=== PATIENT | male | born 1960 | race Caucasian/White ===

== ENCOUNTER 2017-06-20 10:55 | Emergency (ER) | payer SELFPAY ==
[~2017-06-20] VITALS: Ht 175.3 cm; Wt 60.0 kg
[~2017-06-20 10:55] MED LIST: METF500 PO; Z.0.NO CURRENT MEDS
[2017-06-20 11:02] VITALS: BP 152/87; PULSE 64; RESP 18; TEMP 98.5; O2SAT 97
--- NOTE | 2017-06-20 11:08 | PD ---
HPI Chief Complaint: Respiratory Distress Time Seen by Provider: 11:06 Travel History International Travel<30 days: No Contact w/Intl Traveler<30days: No Traveled to known affect area: No History of Present Illness HPI 56-year-old male presents to emergency department for evaluation of his trach. Patient states that he was hospitalized at [facility] for many days on a ventilator. He went for procedure one week ago at [facility] for evaluation of a abscess versus mass in his throat. As result, patient was emergently trached. He reports being discharged. He tells me he is out of cannulas and has been unable to order a new one, "that it is in the mail." He has not followed up with anybody but states he is supposed to get the trach reversed in 2 days. He shows us a card with an appointment with Dr. De La Garza tomorrow. He denies any fever or chills. Does report a sensation of difficulty getting a deep breath. Denies any chest or tightness. No other symptoms to report. PFSH Past Medical History Diabetes: Yes Diminished Hearing: No Respiratory: Yes Immunizations Current: No Past Surgical History Appendectomy: Yes Social History Alcohol Use: Yes (12 PK BEER DAILY) Tobacco Use: Yes (1/2 PPD) Substance Use: No Allergies-Medications (Allergen,Severity, Reaction): Coded Allergies: penicillin G (Verified Allergy, Severe, Anaphylaxis, 06/20/17) trazodone (Verified Allergy, Severe, Insomnia, 06/20/17) No Known Allergies (Verified Allergy, Unknown, 06/20/17) Reported Meds & Prescriptions Reported Meds & Active Scripts Active Reported [place] Carbonate 300 Mg Cap 300 Mg PO BID Hydroxyzine Pamoate 25 Mg Cap 25 Mg PO Q6H PRN Fluconazole 200 Mg Tab 200 Mg PO DAILY Pantoprazole (Pantoprazole Sodium) 40 Mg Tab 40 Mg PO DAILY Saw [place] Extract (Saw [place]-Zinc) 160-15 mg Cap 1 Cap PO DAILY Cefdinir 300 Mg Cap 300 Mg PO BID Latuda (Lurasidone) 40 Mg Tab 40 Mg PO DAILY Hydrocodone-Acetamin 5-325 mg (Hydrocodone/Acetaminophen) 5 Mg-325 Mg Tablet PO Q6HR PRN Review of Systems Except as stated in HPI: all other systems reviewed are Neg Physical Exam Narrative GENERAL: Well-nourished male patient, ambulatory no acute distress SKIN: Focused skin assessment warm/dry. HEAD: Atraumatic. Normocephalic. EYES: Pupils equal and round. No scleral icterus. No injection or drainage. ENT: No nasal bleeding or discharge. Mucous membranes pink and moist. NECK: Trachea midline. No JVD. #[address] The inner cannula is hanging out. Skin is without erythema or edema. Hard mucus dried around the trach site. CARDIOVASCULAR: Regular rate and rhythm. No murmur appreciated. RESPIRATORY: No accessory muscle use. Coarse to auscultation. Breath sounds equal bilaterally. GASTROINTESTINAL: Abdomen soft, non-tender, nondistended. Hepatic and splenic margins not palpable. MUSCULOSKELETAL: No obvious deformities. No clubbing. No cyanosis. No edema. NEUROLOGICAL: Awake and alert. No obvious cranial nerve deficits. Motor grossly within normal limits. Normal speech. Data Data Last Documented VS Vital Signs Date Time Temp Pulse Resp B/P (MAP) Pulse Ox O2 Delivery O2 Flow Rate FiO2 06/20/17 11:06 67 16 98 Room Air 06/20/17 11:02 98.5 152/87 (108) Orders Orders Chest, Single Ap (06/20/17 ) Cannula, Disp Inner 8fr Ea (06/20/17 11:22) ^ Suction (06/20/17 12:05) Radiology Film Requests (06/20/17 ) [facility] Medical Decision Making Medical Screen Exam Complete: Yes Emergency Medical Condition: Yes Medical Record Reviewed: Yes Differential Diagnosis Complication with trach versus mucous plug versus pneumonia Narrative Course 56-year-old male presents to emergency department for evaluation. Patient appears without distress. He does have a #[address] however the inner cannula is hanging out. Patient has a moderate amount of hard crusted mucus surrounding the trach. I am unable to advance a new inner cannula. I have contacted respiratory to assist in this. Sectioning is attempted and wrist trace unable to advance a 14 [place]ese catheter completely. I have contacted and spoke with Dr. De La Garza who states that he did care for the patient when he was in the intensive care unit while he was on a vent. He states he was transferred to [facility] where your nose and throat biopsy the mass and placed the trach. He is requesting observation admission and evaluation by ENT. I called and spoke with Dr. Rider, our research and development director communication clerk. He advises me that research and development director do not handle trachs and airways here at [place] that Gen. surgery does. 1330 I called and spoke with Gen. Leanna surgery on-call who came to the bedside and evaluated the patient. He advises deboraing a To see how the patient tolerates this however the patient does not tolerate this and states that he cannot breathe. He then advises contacting [facility] and discussing the patient with the surgeon who placed the trach. 1400 We then contacted the transfer center who reviewed the patient's record and paged their research and development director communication clerk. 1430 the patient has been requesting strawberry ice cream during his entire visit here and keeps complaining about how long this is taking. I have plain several times that it is necessary to keep him nothing by mouth in case he does need to go under procedure. I have kept him up-to-date up to this point and told him we are only waiting for the surgeon to call us back to place the trach. Patient states that if we are "not going to do anything else" he would like to leave. I did review with the patient leaving at this time would be AGAINST MEDICAL ADVICE. We did give him the name of the surgeon who placed the trach prior to him leaving. AMA: The risks of leaving against medical advice without further evaluation treatment were discussed with the patient. These risks include cardiac dysfunction, cardiac dysrhythmia, possible heart attack, possible stroke or . The patient indicated understanding of these risks and appeared to have the capacity to make this decision. [address] Finn, research and development director communication clerk at [facility] who states the patient was transferred back to [facility] following trach placement. I have informed him that the patient left AGAINST MEDICAL ADVICE. He recommends that if the patient returns placing a new inner cannula in, pushing past the hard mucus collection within the trachea and then placing a cap on it. Diagnosis Primary Impression: Tracheostomy complication, unspecified Disposition: 07 AGAINST MEDICAL ADVICE Condition: Stable Leti Dunlap JACKIE Jun 20, 2017 11:08
[2017-06-20] MEDS ORDERED: FLUC200T2 PO (11:23)
[2017-06-20] MEDS ORDERED: HYDR-3516 PO (11:23)
[2017-06-20] MEDS ORDERED: LITH300C2 PO (11:23)
[2017-06-20] MEDS ORDERED: CEFD300C PO (11:23)
[2017-06-20] MEDS ORDERED: SAWCAP2 PO (11:23)
[2017-06-20] MEDS ORDERED: LURA40 PO (11:23)
[2017-06-20] MEDS ORDERED: HYDR1CAP30 PO (11:23)
[2017-06-20] MEDS ORDERED: PANT40TA3 PO (11:23)
--- NOTE | 2017-06-20 12:38 | RADRPT ---
EXAM DATE/TIME: 06/20/2017 12:30 [facility] COMPARISON: No previous studies available for comparison. INDICATIONS : Trach came out. Coughing, wheezing since today. MEDICAL HISTORY : Unobtainable. SURGICAL HISTORY : Appendectomy. 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 ENCOUNTER: Initial ACUITY: 1 day PAIN SCORE: 3/10 LOCATION: Bilateral chest FINDINGS: A single view of the chest demonstrates the lungs to be symmetrically aerated without evidence of mas s, infiltrate or effusion. The cardiomediastinal contours are unremarkable. Osseous structures are intact. Tracheostomy tube present, grossly normally positioned. CONCLUSION: No evidence of acute cardiopulmonary disease. Saeid Ochoa MD on June 20, 2017 at 12:36 Board Certified Radiologist. This report was verified electronically.
--- NOTE | 2017-06-20 21:15 | MB ---
cc: SANDRA RPINGLE M.D. DATE OF CONSULTATION: 06/20/2017. REASON FOR CONSULTATION: Problems with his tracheostomy. HISTORY OF PRESENT ILLNESS: This is a 56-year-old gentleman who had emergency tracheostomy placed over in [place] somewhere. The events are somewhat sketchy. He is not a very good historian. The emergency room personnel called me to assist in trying to figure out what was going on and assist him in his tracheostomy care. Apparently he has had some type of growth in his larynx or mouth that required an urgent tracheostomy in [place]. There are no records here. He has never been to this hospital with his problem apparently. He is not a good historian but at any rate, they called me after the inner cannula came out of the tracheostomy tube. PAST MEDICAL HISTORY: He is somewhat a poor historian and does not really want to talk about what has been going on. REVIEW OF SYSTEMS: He will not give me any really good review of systems because he wants to eat some ice cream and tells me that his tracheostomy tube is going to be pulled out by his physician, Dr. Smith, tomorrow. MEDICATIONS: Listed in the chart and will not be repeated. ALLERGIES: Listed in the chart and will not be repeated. PHYSICAL EXAMINATION: GENERAL: On examination he is sitting in the emergency room. He gets up and walks around without difficulty. He does not look short of breath or in any distress with me. NECK: He has a tracheostomy tube that is about two weeks old. The inner cannula is out. When he is talking to me with his finger over the tracheostomy tube, it does not appear that he is in any respiratory distress at all. When I attempted to place the inner cannula back in, he had a coughing spell. It seems to get hung up on something, it maybe some tissue because apparently he has not been taking good care of his tracheostomy site. I did not try to replace the inner cannula because he did not appear to be in any respiratory distress. When I told him we would just put the registered representative on it to cap him, he said he could not do that because then he could not breath, although when I put my finger over the hole of the tracheostomy tube, he seemed to breathe and talk fine. During part of our discussion when I was trying to figure out exactly what was going on with him, he kept repeating he wanted some ice cream. ASSESSMENT: A gentleman with a tracheostomy tube that is fresh, it is about two weeks out. I do not have any history or any records as to exactly why it was placed, if he has a mass or does not have a mass. He said the mass went away and he would like his tracheostomy tube pulled out. I told him that at this point I do not feel comfortable pulling the tracheostomy tube without any information. I suggested to the emergency room personnel that there are two options: He looks comfortable to me. He could be discharged to follow up with his physician who is aware of what is going on with him or #2, transfer him to the treating facility that placed the tracheostomy. I do not really think it is in his best interest to put a new one in at this time. The emergency room personnel are going to try to make some arrangements and calls with the other treating physician on his case. I do not have anything to add other than he does not appear to be in distress at this time. MD MARK Linda/AYESHA /8:53 PM /9:00 PM
== END 2017-06-20 14:38 | disposition left against medical advice (07) ==
LOC: NEPE 10:55
DX: Z93.0 Tracheostomy status (principal); E11.9 Type 2 diabetes mellitus without complications; F17.200 Nicotine dependence, unspecified, uncomplicated; Z79.899 Other long term (current) drug therapy; Z88.0 Allergy status to penicillin; Z88.8 Allergy status to other drugs, medicaments and biological substances
CPT/HCPCS: 71010; 99285

== ENCOUNTER 2017-07-05 23:27 | Emergency (ER) | payer OTHER ==
[~2017-07-05] VITALS: Ht 165.1 cm; Wt 68.0 kg
[~2017-07-05 23:27] MED LIST changes: +CEFD300C PO; +FLUC200T2 PO; +HYDR-3516 PO; +HYDR1CAP30 PO; +LITH300C2 PO; +LURA40 PO; -METF500 PO; +PANT40TA3 PO; +SAWCAP2 PO; -Z.0.NO CURRENT MEDS
[2017-07-05 23:47] VITALS: BP 137/76; PULSE 69; RESP 20; TEMP 98.4; O2SAT 98
--- NOTE | 2017-07-06 00:09 | PD ---
HPI Chief Complaint: Psychiatric Symptoms Time Seen by Provider: 00:00 Travel History International Travel<30 days: No Contact w/Intl Traveler<30days: No Traveled to known affect area: No History of Present Illness HPI 56-year-old male presents under [place] act initiated by the police department. According to his paperwork the patient "stated that he has anxiety and depression and bipolar schizophrenia and meds are not working. He stated that he is seeing people that are really there and that he would hurt those people if they acting up. Stated he was having suicidal thoughts due to recent misfortune's." The patient reports that he is currently homeless, recently "lost everything" and had nowhere to go and therefore he called the police. He endorses passive suicidal thoughts. He denies any drug or alcohol use. He has no medical complaints at this time. [facility] Past Medical History Diabetes: Yes Patient Takes Glucophage: Yes Diminished Hearing: No Respiratory: Yes Immunizations Current: No Tetanus Vaccination: < 5 Years Influenza Vaccination: No Past Surgical History Appendectomy: Yes Other Surgery: Yes (BENIGN TUMOR REMOVED FROM THROAT. ) Social History Alcohol Use: No (QUIT 2 MONTHS AGO. PAST DRINKER) Tobacco Use: Yes Substance Use: No Allergies-Medications (Allergen,Severity, Reaction): Coded Allergies: penicillin G (Verified Allergy, Severe, Anaphylaxis, 07/05/17) trazodone (Verified Allergy, Severe, Insomnia, 07/05/17) No Known Allergies (Verified Allergy, Unknown, 07/05/17) Reported Meds & Prescriptions Reported Meds & Active Scripts Active Reported [place] Carbonate 300 Mg Cap 300 Mg PO BID Hydroxyzine Pamoate 25 Mg Cap 25 Mg PO Q6H PRN Fluconazole 200 Mg Tab 200 Mg PO DAILY Pantoprazole (Pantoprazole Sodium) 40 Mg Tab 40 Mg PO DAILY Saw [place] Extract (Saw [place]-Zinc) 160-15 mg Cap 1 Cap PO DAILY Cefdinir 300 Mg Cap 300 Mg PO BID Latuda (Lurasidone) 40 Mg Tab 40 Mg PO DAILY Hydrocodone-Acetamin 5-325 mg (Hydrocodone/Acetaminophen) 5 Mg-325 Mg Tablet PO Q6HR PRN Review of Systems Except as stated in HPI: all other systems reviewed are Neg Physical Exam Narrative GENERAL: Well-nourished male in no acute distress SKIN: Warm and dry. HEAD: Atraumatic. Normocephalic. EYES: Pupils equal and round. No scleral icterus. No injection or drainage. ENT: No nasal bleeding or discharge. Mucous membranes pink and moist. NECK: Trachea midline. No JVD. Some in place. CARDIOVASCULAR: Regular rate and rhythm. No murmur appreciated. RESPIRATORY: No accessory muscle use. Clear to auscultation. Breath sounds equal bilaterally. GASTROINTESTINAL: Abdomen soft, non-tender, nondistended. Hepatic and splenic margins not palpable. MUSCULOSKELETAL: No obvious deformities. No clubbing. No cyanosis. No edema. NEUROLOGICAL: Awake and alert. No obvious cranial nerve deficits. Motor grossly within normal limits. Normal speech. PSYCHIATRIC: Anxious. Insight and judgment normal. Data Data Last Documented VS Vital Signs Date Time Temp Pulse Resp B/P (MAP) Pulse Ox O2 Delivery O2 Flow Rate FiO2 07/05/17 23:47 98.4 69 20 137/76 (96) 98 Orders Orders Complete Blood Count With Diff (07/05/17 23:50) Comprehensive Metabolic Panel (07/05/17 23:50) Psych Screen (07/05/17 23:50) Drug Screen, Random Urine (07/05/17 23:50) Alcohol (Ethanol) (07/05/17 23:50) Labs Laboratory Tests Test 07/06/17 00:15 White Blood Count 6.3 TH/MM3 Red Blood Count 4.11 MIL/MM3 Hemoglobin 13.5 GM/DL Hematocrit 38.7 % Mean Corpuscular Volume 94.1 FL Mean Corpuscular Hemoglobin 32.7 PG Mean Corpuscular Hemoglobin Concent 34.8 % Red Cell Distribution Width 12.6 % Platelet Count 234 TH/MM3 Mean Platelet Volume 8.7 FL Neutrophils (%) (Auto) 78.7 % Lymphocytes (%) (Auto) 15.4 % Monocytes (%) (Auto) 5.5 % Eosinophils (%) (Auto) 0.1 % Basophils (%) (Auto) 0.3 % Neutrophils # (Auto) 4.9 TH/MM3 Lymphocytes # (Auto) 1.0 TH/MM3 Monocytes # (Auto) 0.3 TH/MM3 Eosinophils # (Auto) 0.0 TH/MM3 Basophils # (Auto) 0.0 TH/MM3 CBC Comment DIFF FINAL Differential Comment Blood Urea Nitrogen 13 MG/DL Creatinine 0.84 MG/DL Random Glucose 180 MG/DL Total Protein 6.4 GM/DL Albumin 3.0 GM/DL Calcium Level 8.5 MG/DL Alkaline Phosphatase 103 U/L Aspartate Amino Transf (AST/SGOT) 47 U/L Alanine Aminotransferase (ALT/SGPT) 90 U/L Total Bilirubin 0.3 MG/DL Sodium Level 138 MEQ/L Potassium Level 4.6 MEQ/L Chloride Level 108 MEQ/L Carbon Dioxide Level 23.4 MEQ/L Anion Gap 7 MEQ/L Estimat Glomerular Filtration Rate 94 ML/MIN Urine Opiates Screen NEG Urine Barbiturates Screen NEG Urine Amphetamines Screen NEG Urine Benzodiazepines Screen NEG Urine Cocaine Screen NEG Urine Cannabinoids Screen NEG Ethyl Alcohol Level LESS THAN 3 MG/DL MDM Medical Decision Making Medical Screen Exam Complete: Yes Emergency Medical Condition: Yes Medical Record Reviewed: Yes Differential Diagnosis Homelessness, major depressive disorder, adjustment reaction, substance induced mood disorder Narrative Course 56-year-old male presents under [place] act for psychiatric evaluation. Mental health screening discussed with the patient. Psychiatric screen ordered. Lab work reviewed. Mildly elevated liver enzymes. Medically cleared. Diagnosis Primary Impression: Medical clearance for psychiatric admission Jonah Aguirre Jul 06, 2017 00:09
[2017-07-06 00:28] LABS: AUTOMATED NEUTROPHIL # 4.9 TH/MM3 (1.8-7.7); BASOPHIL % 0.3 % (0.0-2.0); EOSINOPHIL % 0.1 % (0.0-4.0); HEMATOCRIT 38.7 % (39.0-51.0); HEMOGLOBIN 13.5 GM/DL (13.0-17.0); LYMPH % 15.4 % (9.0-44.0); MEAN CELL VOLUME 94.1 FL (80.0-100.0); MEAN CORPUSCULAR HEMOGLOBIN 32.7 PG (27.0-34.0); MEAN CORPUSCULAR HGB CONC 34.8 % (32.0-36.0); MEAN PLATELET VOLUME 8.7 FL (7.0-11.0); MONO % 5.5 % (0.0-8.0); MONOCYTE # 0.3 TH/MM3 (0-0.9); NEUT % 78.7 % (16.0-70.0); PLATELET COUNT 234 TH/MM3 (150-450); RED BLOOD COUNT 4.11 MIL/MM3 (4.50-5.90); RED CELL DISTRIBUTION WIDTH 12.6 % (11.6-17.2); WHITE BLOOD COUNT 6.3 TH/MM3 (4.0-11.0)
[2017-07-06 00:42] LABS: ALT (GPT) 90 U/L (12-78); AST (GOT) 47 U/L (15-37); BICARBONATE 23.4 MEQ/L (21.0-32.0); BLOOD UREA NITROGEN 13 MG/DL (7-18); CALCIUM 8.5 MG/DL (8.5-10.1); CHLORIDE 108 MEQ/L (98-107); CREATININE 0.84 MG/DL (0.60-1.30); GLOMERULAR FILTRATION RATE 94 ML/MIN (>89); GLUCOSE,RANDOM 180 MG/DL (74-106); SODIUM (NA) 138 MEQ/L (136-145)
[2017-07-06 00:44] LABS: ALKALINE PHOSPHATASE 103 U/L (45-117); TOTAL BILIRUBIN ADULT 0.3 MG/DL (0.2-1.0); TOTAL PROTEIN 6.4 GM/DL (6.4-8.2)
[2017-07-06] MEDS ORDERED: ESZO1TAB4 PO (02:21)
[2017-07-06] MEDS ORDERED: BENZ0.5T PO (02:21)
[2017-07-06 02:32] VITALS: PULSE 72; RESP 20; O2SAT 98
[2017-07-06 07:10] VITALS: BP 124/81; PULSE 78; RESP 18; TEMP 97.8; O2SAT 98
[2017-07-06] MEDS ORDERED: RESP: ALBUTEROL 2.5 MG/IPRATROPIUM 0.5 MG NEB (SCH) INH ONE (10:45)
[2017-07-06 11:00] VITALS: BP 132/78; PULSE 77; RESP 18; TEMP 97.8; O2SAT 98
--- NOTE | 2017-07-06 14:33 | PD ---
History of Present Illness Chief Complaint: Psychiatric Symptoms Time Seen by Provider: 14:00 Travel History International Travel<30 Days: No Contact w/Intl Traveler<30days: No Known affected area: No Legal Status Legal Status: Wise Act Wise Act Signed By: Esther Clayton History of Present Illness: History of Present Illness HPI 56-year-old male with a self-reported history of bipolar disorder, schizophrenia , anxiety, who presents under Wise act initiated by the police department after he contacted the police department himself and requested to be placed under Wise act. According to his paperwork the patient "stated that he has anxiety and depression and bipolar schizophrenia and meds are not working. He stated that he is seeing people that are really there and that he would hurt those people if they acting up. Stated he was having suicidal thoughts due to recent misfortune's." The patient reported to ED provider that "he is currently homeless, recently lost everything and had nowhere to go and therefore he called the police." He was monitored in the ED and presented no behavioral concerns and no suicidality. ED nurse, Ms. Mcgill reports he has presented no behavioral concerns. Electronic medical record is reviewed no previous contact with [facility] psychiatry Department. He has been seen in the emergency department several times for medical issues. Patient is seen in main ED. He is awake, alert and oriented male in hospital gown with appropriate hygiene and grooming. He has a trach in place and communicates well. There is no evidence of any thought process or content disorder. There is no psychosis and he does not appear to be internally stimulated. No evidence of any alejandro or hypomania. Speech is clear, logical and goal-directed. Normal rate and tone. No significant objective clinical symptoms of depression noted or reported. He describes his mood as anxious. Patient states to me "I became scared and freaked out about their so I called the police to have them placed be under Wise act. I need a place to stay and I cannot be out there on the street." Patient goes on to tell me that he was discharged from the hospital several days ago and has been staying at the [facility] for the past 2 weeks and that it had been paid for by his safety officer. He also tells me that he knows at [facility] can pay for him to continue to stay there as he has 3 friends that are staying there and told him that the hospitalist pain further stay. The patient presents no suicidal or homicidal ideation, intent or plan. He is future oriented and reports that he is working on Social Security disability case as well as a lawsuit against the hospital that performed the tracheostomy. He becomes upset when I informed him that the hospital will not be able to assist him in finding a stable housing. He is also upset because he has been waiting for his lunch for some time. In terms of psychiatric history he reports that he follows with [facility] for therapy and sees Dr. Amparo Graf for psychiatric medications. PFS Past Medical History Diabetes: Yes Patient Takes Glucophage: Yes Diminished Hearing: No Respiratory: Yes Immunizations Current: No Tetanus Vaccination: < 5 Years Influenza Vaccination: No Past Surgical History Appendectomy: Yes Other Surgery: Yes (BENIGN TUMOR REMOVED FROM THROAT. ) Psychiatric History Psychiatric History Hx Psychiatric Treatment: REPORTS THAT HE HAS BIPOLAR SCHIZOPHRENIA AND DEPRESSION. REPORTS THAT HE SEES DR LACKEY IN [facility]. REPORTS THAT HE TAKES HIS MEDS AND HAS THEM ALL WITH HIM. History of Inpatient Treatment: No Guns or firearms in home: No Social History male. Currently homeless. Hx Alcohol Use: No (QUIT 2 MONTHS AGO. PAST DRINKER) Hx Tobacco Use: Yes Hx Substance Use: No (PAST ALCOHOL) Other Substances Used: negative toxicology report Hx of Substance Use Treatment: No Family Psychiatric History No reported Allergies-Medications (Allergen,Severity, Reaction): Coded Allergies: penicillin G (Verified Allergy, Severe, Anaphylaxis, 07/05/17) trazodone (Verified Allergy, Severe, Insomnia, 07/05/17) Reported Meds & Prescriptions Reported Meds & Active Scripts Active Reported Benztropine (Benztropine Mesylate) 0.5 Mg Tab 1 Mg PO HS Eszopiclone 3 Mg Tab 3 Mg PO HS PRN [place] Carbonate 300 Mg Cap 300 Mg PO BID Hydroxyzine Pamoate 25 Mg Cap 25 Mg PO Q6H PRN Pantoprazole (Pantoprazole Sodium) 40 Mg Tab 40 Mg PO DAILY Saw [place] Extract (Saw [place]-Zinc) 160-15 mg Cap 1 Cap PO DAILY Latuda (Lurasidone) 40 Mg Tab 40 Mg PO DAILY Hydrocodone-Acetamin 5-325 mg (Hydrocodone/Acetaminophen) 5 Mg-325 Mg Tablet PO Q6HR PRN Review of Systems Respiratory: COMPLAINS OF: Sputum production Psychiatric: COMPLAINS OF: Anxiety Except as stated in HPI: all other systems reviewed are Neg Mental Status Examination Appearance: Appropriate Consciousness: Alert Orientation: x4 Motor Activity: Normal gait Speech: Unremarkable Language: Adequate Fund of Knowledge: Adequate Attention and Concentration: Adequate Memory: Unremarkable Mood: Appropriate Affect: Appropriate Thought Process & Associations: Intact Thought Content: Appropriate Hallucination Type: None Delusion Type: None Suicidal Ideation: No Suicidal Plan: No Suicidal Intention: No Homicidal Ideation: No Homicidal Plan: No Homicidal Intention: No Insight: Fair Judgment: Adequate MDM Medical Decision Making Medical Record Reviewed: Yes Assessment/Plan 56-year-old male with a self-reported history of bipolar disorder, schizophrenia , anxiety, who presents under Wise act initiated by the police department after he contacted the police department and requested to be placed under Wise act. According to his paperwork the patient "stated that he has anxiety and depression and bipolar schizophrenia and meds are not working. He stated that he is seeing people that are really there and that he would hurt those people if they acting up. Stated he was having suicidal thoughts due to recent misfortune's." The patient reported to ED provider that "he is currently homeless, recently lost everything and had nowhere to go and therefore he called the police." The patient does not present any unstable mental illness as defined under the Wise act. There is no psychosis and no alejandro. Does not appear to be responding to any internal stimuli. He is future oriented. He states very clearly demanding that the hospital provide him with a place to stay and becomes upset when I inform him that I did not believe that we have those services in place. Patient does not meet criteria for Wise act and does not meet criteria for inpatient psychiatric hospitalization. During the course of the evaluation the patient did not resent any psychiatric complaints and was completely focused on obtaining half-way. Case discussed with JACKIE Langston. Case referred to case management department as the patient is requesting assistance with obtaining housing/ half-way. Psychiatrically clear for discharge Orders Orders Complete Blood Count With Diff (07/05/17 23:50) Comprehensive Metabolic Panel (07/05/17 23:50) Psych Screen (07/05/17 23:50) Drug Screen, Random Urine (07/05/17 23:50) Alcohol (Ethanol) (07/05/17 23:50) Diet Regular Basic (07/06/17 Breakfast) Albuterol-Ipratropium Neb (Duoneb Neb) (07/06/17 10:45) Diet Regular Basic (07/06/17 Lunch) Results Vital Signs Date Time Temp Pulse Resp B/P (MAP) Pulse Ox O2 Delivery O2 Flow Rate FiO2 07/06/17 11:00 97.8 77 18 132/78 (96) 98 Room Air 07/06/17 07:10 97.8 78 18 124/81 (95) 98 Room Air 07/06/17 07:05 17 07/06/17 02:32 72 20 98 Room Air 07/05/17 23:47 98.4 69 20 137/76 (96) 98 Laboratory Tests Test 07/06/17 00:15 White Blood Count 6.3 Red Blood Count 4.11 Hemoglobin 13.5 Hematocrit 38.7 Mean Corpuscular Volume 94.1 Mean Corpuscular Hemoglobin 32.7 Mean Corpuscular Hemoglobin Concent 34.8 Red Cell Distribution Width 12.6 Platelet Count 234 Mean Platelet Volume 8.7 Neutrophils (%) (Auto) 78.7 Lymphocytes (%) (Auto) 15.4 Monocytes (%) (Auto) 5.5 Eosinophils (%) (Auto) 0.1 Basophils (%) (Auto) 0.3 Neutrophils # (Auto) 4.9 Lymphocytes # (Auto) 1.0 Monocytes # (Auto) 0.3 Eosinophils # (Auto) 0.0 Basophils # (Auto) 0.0 CBC Comment DIFF FINAL Differential Comment Blood Urea Nitrogen 13 Creatinine 0.84 Random Glucose 180 Total Protein 6.4 Albumin 3.0 Calcium Level 8.5 Alkaline Phosphatase 103 Aspartate Amino Transf (AST/SGOT) 47 Alanine Aminotransferase (ALT/SGPT) 90 Total Bilirubin 0.3 Sodium Level 138 Potassium Level 4.6 Chloride Level 108 Carbon Dioxide Level 23.4 Anion Gap 7 Estimat Glomerular Filtration Rate 94 Urine Opiates Screen NEG Urine Barbiturates Screen NEG Urine Amphetamines Screen NEG Urine Benzodiazepines Screen NEG Urine Cocaine Screen NEG Urine Cannabinoids Screen NEG Ethyl Alcohol Level LESS THAN 3 Diagnosis Primary Impression: Medical clearance for psychiatric admission Additional Impression: Adjustment disorder Psychiatrically Cleared: Yes Med/ Other Pt Specific Info: No Change to Meds Disposition: 01 DISCHARGE HOME Condition: Stable Problem Qualifiers Additional Impression: Adjustment disorder Qualified Codes: F43.22 - Adjustment disorder with anxiety Britney Marion [facility] Jul 06, 2017 14:33
--- NOTE | 2017-07-06 15:10 | PD ---
Physical Exam Date Seen by Provider: Jul 06, 2017 Time Seen by Provider: 15:09 Narrative 56-year-old male was brought to the emergency department for psychiatric evaluation. He was seen by the psychiatric nurse practitioner, Britney, who cleared him for disposition. The patient states that he knows 4 people who [facility] houses in a hotel. He would like to be housed as well. Patient is requesting living accommodations. Case management was consulted who has provided a bus pass. However, we cannot rent the patient out a place in a hotel as he is requesting. Data Data Last Documented VS Vital Signs Date Time Temp Pulse Resp B/P (MAP) Pulse Ox O2 Delivery O2 Flow Rate FiO2 07/06/17 11:00 97.8 77 18 132/78 (96) 98 Room Air Orders Orders Complete Blood Count With Diff (07/05/17 23:50) Comprehensive Metabolic Panel (07/05/17 23:50) Psych Screen (07/05/17 23:50) Drug Screen, Random Urine (07/05/17 23:50) Alcohol (Ethanol) (07/05/17 23:50) Diet Regular Basic (07/06/17 Breakfast) Albuterol-Ipratropium Neb (Duoneb Neb) (07/06/17 10:45) Diet Regular Basic (07/06/17 Lunch) Labs Laboratory Tests Test 07/06/17 00:15 White Blood Count 6.3 TH/MM3 Red Blood Count 4.11 MIL/MM3 Hemoglobin 13.5 GM/DL Hematocrit 38.7 % Mean Corpuscular Volume 94.1 FL Mean Corpuscular Hemoglobin 32.7 PG Mean Corpuscular Hemoglobin Concent 34.8 % Red Cell Distribution Width 12.6 % Platelet Count 234 TH/MM3 Mean Platelet Volume 8.7 FL Neutrophils (%) (Auto) 78.7 % Lymphocytes (%) (Auto) 15.4 % Monocytes (%) (Auto) 5.5 % Eosinophils (%) (Auto) 0.1 % Basophils (%) (Auto) 0.3 % Neutrophils # (Auto) 4.9 TH/MM3 Lymphocytes # (Auto) 1.0 TH/MM3 Monocytes # (Auto) 0.3 TH/MM3 Eosinophils # (Auto) 0.0 TH/MM3 Basophils # (Auto) 0.0 TH/MM3 CBC Comment DIFF FINAL Differential Comment Blood Urea Nitrogen 13 MG/DL Creatinine 0.84 MG/DL Random Glucose 180 MG/DL Total Protein 6.4 GM/DL Albumin 3.0 GM/DL Calcium Level 8.5 MG/DL Alkaline Phosphatase 103 U/L Aspartate Amino Transf (AST/SGOT) 47 U/L Alanine Aminotransferase (ALT/SGPT) 90 U/L Total Bilirubin 0.3 MG/DL Sodium Level 138 MEQ/L Potassium Level 4.6 MEQ/L Chloride Level 108 MEQ/L Carbon Dioxide Level 23.4 MEQ/L Anion Gap 7 MEQ/L Estimat Glomerular Filtration Rate 94 ML/MIN Urine Opiates Screen NEG Urine Barbiturates Screen NEG Urine Amphetamines Screen NEG Urine Benzodiazepines Screen NEG Urine Cocaine Screen NEG Urine Cannabinoids Screen NEG Ethyl Alcohol Level LESS THAN 3 MG/DL MDM Medical Record Reviewed: Yes Supervised Visit with JESSICA: No Narrative Course 56-year-old male presents to the emergency department presents to the emergency department requesting housing. He would like [employer] to pay for a place for him to live. This is not a reasonable request. He has been cleared by the psychiatric nurse practitioner, Britney. He is stable for discharge. Diagnosis Primary Impression: Medical clearance for psychiatric admission Additional Impression: Adjustment disorder Qualified Codes: F43.20 - Adjustment disorder, unspecified Referrals: [facility] Patient Instructions: General Instructions, Medical Clearance for Psychiatric Care (ED) Additional Instruction: Follow-up with your primary care physician. Return to the emergency department for any acute worsening of symptoms. Med/Other Pt SpecificInfo: No Change to Meds Disposition: 01 DISCHARGE HOME Condition: Stable Alissa Beavers Jul 06, 2017 15:10
[2017-07-06 15:15] VITALS: BP 124/83; TEMP 97.8
== END 2017-07-06 15:20 | disposition home or self-care (01) ==
LOC: NEPD 23:27
DX: Z04.6 Encounter for general psychiatric examination, requested by authority (principal); F41.9 Anxiety disorder, unspecified; F31.9 Bipolar disorder, unspecified; R45.851 Suicidal ideations; F20.9 Schizophrenia, unspecified; E11.9 Type 2 diabetes mellitus without complications; Z59.0 Homelessness; Z72.0 Tobacco use; R74.8 Abnormal levels of other serum enzymes
CPT/HCPCS: 80053; 80307; 85025; 94664; 99284